=== PATIENT | female | born 1990 | race Caucasian/White ===

== ENCOUNTER 2024-07-11 08:09 | Emergency (ER) | payer BC, SELFPAY ==
[~2024-07-11] VITALS: Ht 160 cm; Wt 108.0 kg
[2024-07-11] MEDS: NS 500 ML IV ONE (09:20)
[2024-07-11] MEDS: ACETAMINOPHEN *IV* 1,000 MG in IV 1 EA IV ONE (09:33)
[2024-07-11] MEDS: KETOROLAC 30 MG/ML 1ML VIAL IV ONE (09:33)
[2024-07-11] MEDS: ONDANSETRON 4MG 2ML VIAL IV ONE (09:33)
[2024-07-11 10:01] LABS: BASO % 0.2 % (0.0-1.0); HEMATOCRIT 34.4 % (36.0-47.0); LYMPH # 1.1 10^3/uL (1.5-5.0); LYMPH % 11.6 % (24.0-44.0); MEAN CORPUSCULAR HEMOGLOBIN 27.6 pg (27.0-33.0); MEAN CORPUSCULAR HGB CONC 34.9 g/dl (32.0-36.5); MEAN CORPUSCULAR VOLUME 79.1 fl (80.0-96.0); MONO # 0.6 10^3/uL (0.0-0.8); MONO % 5.9 % (2.0-8.0); NEUTROPHILS # 7.9 10^3/uL (1.5-8.5); NEUTROPHILS % 82.2 % (36.0-66.0); PLATELET COUNT, AUTOMATED 334 10^3/uL (150-450); RED BLOOD COUNT 4.35 10^6/uL (4.00-5.40); WHITE BLOOD COUNT 9.6 10^3/uL (4.0-10.0)
[2024-07-11 10:27] LABS: LIPASE 19 U/L (12-53)
[2024-07-11 10:28] LABS: AMYLASE 37 U/L (30-118)
[2024-07-11 10:29] LABS: ALBUMIN 3.8 G/DL (3.2-5.2); ALKALINE PHOSPHATASE 144 U/L (46-116); ALT/SGPT 51 U/L (7.0-40); AST/SGOT 33 U/L (<34); BILIRUBIN,DIRECT 0.4 MG/DL (<0.4); BILIRUBIN,TOTAL 0.7 MG/DL (0.3-1.2); BLOOD UREA NITROGEN 14 MG/DL (9-23); CALCIUM LEVEL 9.9 MG/DL (8.5-10.1); CARBON DIOXIDE LEVEL 23 MMOL/L (20-31); CHLORIDE LEVEL 110 MMOL/L (98-107); CREATININE FOR GFR 0.75 MG/DL (0.55-1.30); GLOMERULAR FILTRATION RATE > 60.0 (>60); GLUCOSE, FASTING 104 MG/DL (60-100); POTASSIUM SERUM 4.2 MMOL/L (3.5-5.1); SODIUM LEVEL 141 MMOL/L (136-145); TOTAL PROTEIN 7.1 G/DL (5.7-8.2)
[2024-07-11 10:57] VITALS: BP 128/72; TEMP 97.7; O2SAT 98
[2024-07-11] MEDS ORDERED: FLOM0.4C39 PO (10:59)
[2024-07-11] MEDS ORDERED: IBUP-1022 PO (10:59)
[2024-07-11] MEDS ORDERED: ONDA-282 PO (11:00)
[2024-07-11] MEDS ORDERED: PERC5TAB12 PO (11:00)
[2024-07-11] MEDS ORDERED: BACT800T5 PO (11:01)
[2024-07-11] MEDS: BACTRIM 160MG/800MG DS TAB PO ONE (11:07)
== END 2024-07-11 11:11 | disposition home or self-care (01) ==
LOC: M ED 08:09
DX: N23 Unspecified renal colic (principal); Z79.1 Long term (current) use of non-steroidal anti-inflammatories (NSAID); Z79.899 Other long term (current) drug therapy
CPT/HCPCS: 74176; 80048; 80076; 81001; 82150; 83690; 85025; 87086; 93041; 96365; 96374; 99284; J0131; J1885; J2405

== ENCOUNTER → 2025-07-09 | Outpatient (REF) | payer BC ==
[~2025-07-09] MED LIST: BACT800T5 PO; IBUP600T42 PO; ONDA-282 PO; PERC5TAB12 PO; TAMS-18 PO
[2025-07-11 12:57] LABS: CHLAMYDIA TRACHOMATIS NAA NOT DETECTED (NOT DETECTED)
[2025-07-11 15:07] LABS: BVAB 2 NEGATIVE (NEGATIVE)
[2025-07-11 15:17] LABS: CANDIDA GLABRATA NAA NOT DETECTED (NOT DETECTED); TRICH VAG BY NAA NOT DETECTED (NOT DETECTED)
[2025-07-22 14:17] LABS: HPV APTIMA Detected (Not Detected)
== END ==
LOC: M SFHCWAGY 17:05
PROVIDERS: ATTEND Student in an Organized Health Care Education/Training Program
DX: Z01.419 Encounter for gynecological examination (general) (routine) without abnormal findings (principal); Z11.3 Encounter for screening for infections with a predominantly sexual mode of transmission; R87.610 Atypical squamous cells of undetermined significance on cytologic smear of cervix (ASC-US)

== ENCOUNTER → 2025-07-30 | Outpatient (REF) | payer BC | LOC: M SFHCLERA 07:34 | PROVIDERS: ATTEND Student in an Organized Health Care Education/Training Program | DX: Z53.9 Procedure and treatment not carried out, unspecified reason (principal); Z00.00 Encounter for general adult medical examination without abnormal findings; Z11.3 Encounter for screening for infections with a predominantly sexual mode of transmission ==